=== PATIENT | male | born 1970 | race Two or more races ===

== ENCOUNTER 2016-08-04 13:11 | Emergency (ER) | payer OTHER ==
--- NOTE | ~2016-08-04 | CR72 ---
[facility] A Service of [facility] / [facility] RADIOLOGY TEXT RESULTS PATIENT: RAMONITA KAPADIA LOCATION: [facility] : 74 UNIT #: [id number] AGE: [address]: Samanta Malagon MD SEX: M ORDER DR: [id number] [facility] [address] [place], [place] [address] [id number] E MR#: [id number] Acc #: [id number] NAME: RAMONITA KAPADIA : 1970 SEX: M STUDY DATE/TIME: 08/04/2016 12:39 UNIT: [facility] ROOM: STUDY DESCRIPTION: CR Chest Single View Portable Attending Physician: Samanta Malagon M.D. Ordering Physician: Samanta Malagon M.D. Primary Care Physician: Jose Huffman M.D. MEDICAL IMAGING REPORT This report is preliminary unless electronic signature is present EXAM Portable chest HISTORY Shortness of air for 1 day. COMPARISON STUDIES 03/13/2015. FINDINGS AP portable view of the chest is obtained. The heart size and vascularity are normal and the lungs are clear. Bones are normal. IMPRESSION No active disease. Dictated by... Vinod Olivia M.D. THIS IS AN ELECTRONICALLY VERIFIED REPORT Vinod Olivia M.D. at 08/04/2016 4:55 PM FEL/pcl TD: 08/04/2016 15:33 JOB #: [id number] MEDICAL IMAGING REPORT COPY
--- NOTE | ~2016-08-04 | EKG ---
PATIENT: RAMONITA KAPADIA UNIT #: [id number] Ventricular Rate: 99 BPM Atrial Rate: 99 BPM P-R Interval: 166 ms QRS Duration: 110 ms Q-T Interval: 334 ms QTC Calculation(Bezet): 428 ms P [place]: 58 degrees Calculated R [place]: 52 degrees Calculated T [place]: 49 degrees Diagnosis Line: Normal sinus rhythm Diagnosis Line: Normal ECG Diagnosis Line: Diagnosis Line: Confirmed by ELISSA MINOR MD ([id number]) on Diagnosis Line: 08/04/2016 4:16:11 PM INTERPRETING MD: IVÁN PRAKASH
[2016-08-04 12:18] LABS: INFLUENZA A NEG (NEG); INFLUENZA B NEG (NEG)
[~2016-08-04 13:11] MED LIST: BENTYL10 M1 PO; BENTYL20 M1 PO; CIPRO PO; COLACE PO; ENTOCORT EC3 MG PO; FLEXERIL10 MG PO; FLOMAX0.4 M1 DOB; HYDROCODON-ACE1 EAC9 PO; LOMOTIL WHITE2.5 M1 PO; MILK OF MAGNESIA PO; PERCOCET 7.5/321 TAB PO; PREDNISONE PO; PROTONIX20 MG PO; REMICADE; TOPAMAX PO; TRAMADOL HCL100 MG PO; ULTRAM PO; ZOFRAN PO; [UNRECOGNIZED DRUG - OTHER]; [UNRECOGNIZED DRUG - REMARK]
[2016-08-04 13:18] LABS: BASOPHIL# 0.1 X10e3 (0-0.3); BASOPHIL% 0.5 % (0-2.5); EOSINOPHIL# 0.6 X10e3 (0-0.7); EOSINOPHIL% 5.5 % (0.0-7.0); HEMATOCRIT 42.2 % (38.0-50.0); HEMOGLOBIN 13.7 gm/dL (13.0-16.0); LYMPHOCYTE# 1.9 X10e3 (1.0-3.5); LYMPHOCYTE% 18.6 % (17.0-45.0); MEAN CELL VOLUME 75.6 FL (83-96); MEAN CORPUSCULAR HEMOGLOBIN 24.5 PG (28-34); MEAN CORPUSCULAR HGB CONC 32.4 g/dL (30-36); MEAN PLATELET VOLUME 8.6 FL (6.5-11.5); MONOCYTE# 0.6 X10e3 (0-1.0); NEUTROPHIL% 69.4 % (40-75); PLATELET COUNT 289 X10e3 (140-420); RED BLOOD COUNT 5.58 X10e (3.90-5.60); RED CELL DISTRIBUTION WIDTH 15.4 % (11.0-15.5); WHITE BLOOD COUNT 10.1 X10e3 (4.0-10.5)
[2016-08-04 13:22] LABS: DIFF IND NO
[2016-08-04 13:27] LABS: POC - CKMB 2.1 ng/mL (0.0-7.9); POC - TROPONIN <0.05 ng/mL (<=0.05)
[2016-08-04 13:42] LABS: ALBUMIN SERUM 3.8 g/dL (3.5-5.0); ALKALINE PHOSPHATASE 94 U/L (32-92); ALT (SGPT) 37 U/L (10-40); AST (SGOT) 32 U/L (10-42); BILIRUBIN, DIRECT 0.2 mg/dL (0.0-0.2); BILIRUBIN,TOTAL 1.2 mg/dL (0.2-2.0); BLOOD UREA NITROGEN 11 mg/dL (9-23); BUN/CREATININE RATIO 12.22; CALCIUM SERUM 8.9 mg/dL (8.4-10.2); CARBON DIOXIDE 26 mmol/L (22-31); CHLORIDE 102 mmol/L (100-111); CREATININE SERUM 0.9 mg/dL (0.6-1.4); GLOM FILT RATE Estimated ABOVE60 mL/min (>60); GLUCOSE FASTING 100 mg/dL (70-110); POTASSIUM 3.8 mmol/L (3.5-5.1); PROTEIN TOTAL SERUM 7.3 g/dL (6.0-8.3); SODIUM 137 mmol/L (135-145)
[2016-08-04] MEDS ORDERED: LORTAB 5-325 M1 EACH PO (13:54)
[2016-08-04] MEDS ORDERED: IRON325 ( 65 ) PO (13:55)
[2016-08-04] MEDS ORDERED: GABAPENTIN300 MG PO (13:55)
[2016-08-04] MEDS ORDERED: FLEXERIL10 MG PO (13:55)
[2016-08-04] MEDS ORDERED: ROPINIROLE HCL0.5 MG PO (13:56)
[2016-08-04] MEDS ORDERED: SINGULAIR PO (13:56)
[2016-08-04] MEDS ORDERED: PROTONIX PO (13:56)
[2016-08-04] MEDS ORDERED: ZYRTEC10 M1 PO (13:56)
[2016-08-04 14:48] LABS: POC - CKMB 2.6 ng/mL (0.0-7.9); POC - TROPONIN <0.05 ng/mL (<=0.05)
== END 2016-08-04 16:11 | disposition home or self-care (01) ==
LOC: CED 13:11
PROVIDERS: Emergency Medicine
DX: J20.9 Acute bronchitis, unspecified (principal)
CPT/HCPCS: 71010; 80048; 80076; 82553; 83880; 84484; 85025; 85379; 87651; 87804; 93005; 94640; 96365; 96375; 99284; J1885; J2930; J3475

== ENCOUNTER 2016-10-29 13:41 | Emergency (ER) | payer OTHER ==
--- NOTE | ~2016-10-29 | EKG ---
PATIENT: RAMONITA KAPADIA UNIT #: [id number] Ventricular Rate: 113 BPM Atrial Rate: 113 BPM P-R Interval: 156 ms QRS Duration: 108 ms Q-T Interval: 330 ms QTC Calculation(Bezet): 452 ms P [place]: 43 degrees Calculated R [place]: 40 degrees Calculated T [place]: 30 degrees Diagnosis Line: Sinus tachycardia Diagnosis Line: Otherwise normal ECG Diagnosis Line: When compared with ECG of 04-AUG-2016 12:35, Diagnosis Line: No significant change was found Diagnosis Line: Confirmed by JOSUÉ ERVIN MD ([id number]) on Diagnosis Line: 10/31/2016 1:08:22 PM INTERPRETING : JENNIFER
[~2016-10-29 13:41] MED LIST changes: +GABAPENTIN300 MG PO; +IRON325 ( 65 ) PO; +LORTAB 5-325 M1 EACH PO; +PROTONIX PO; +ROPINIROLE HCL0.5 MG PO; +SINGULAIR PO; +ZYRTEC10 M1 PO
[2016-10-29 14:50] LABS: BASOPHIL# 0.1 X10e3 (0-0.3); BASOPHIL% 0.8 % (0-2.5); DIFF IND NO; EOSINOPHIL# 0.6 X10e3 (0-0.7); EOSINOPHIL% 7.8 % (0.0-7.0); HEMATOCRIT 45.4 % (38.0-50.0); HEMOGLOBIN 14.4 gm/dL (13.0-16.0); LYMPHOCYTE# 2.1 X10e3 (1.0-3.5); LYMPHOCYTE% 30.5 % (17.0-45.0); MEAN CORPUSCULAR HEMOGLOBIN 24.5 PG (28-34); MEAN CORPUSCULAR HGB CONC 31.8 g/dL (30-36); MEAN PLATELET VOLUME 8.6 FL (6.5-11.5); MONOCYTE# 0.4 X10e3 (0-1.0); MONOCYTE% 5.5 % (3.0-12.0); NEUTROPHIL# 3.9 X10e3 (1.5-7.1); NEUTROPHIL% 55.4 % (40-75); PLATELET COUNT 301 X10e3 (140-420); RED CELL DISTRIBUTION WIDTH 15.3 % (11.0-15.5)
[2016-10-29 15:15] LABS: CALCIUM SERUM 9.1 mg/dL (8.4-10.2); GLOM FILT RATE Estimated 91.8 mL/min (>60); POTASSIUM 4.2 mmol/L (3.5-5.1)
== END 2016-10-29 15:45 | disposition home or self-care (01) ==
LOC: CED 13:41
PROVIDERS: Emergency Medicine
DX: R42 Dizziness and giddiness (principal); I10 Essential (primary) hypertension; Z88.5 Allergy status to narcotic agent
CPT/HCPCS: 36415; 80048; 85025; 93005; 96360; 99284

== ENCOUNTER 2016-11-15 23:30 | Emergency (ER) | payer OTHER | END 2016-11-16 01:57 | disposition home or self-care (01) | LOC: CED 23:30 | DX: S33.5XXA Sprain of ligaments of lumbar spine, initial encounter (principal); I10 Essential (primary) hypertension; F17.200 Nicotine dependence, unspecified, uncomplicated; V43.52XA Car driver injured in collision with other type car in traffic accident, initial encounter | CPT/HCPCS: 99283 ==

== ENCOUNTER 2016-12-06 22:40 | Emergency (ER) | payer OTHER | END 2016-12-07 01:30 | disposition home or self-care (01) | LOC: CED 22:40 | DX: G89.29 Other chronic pain (principal); M25.561 Pain in right knee; Z88.5 Allergy status to narcotic agent; Z79.899 Other long term (current) drug therapy | CPT/HCPCS: 99283 ==

== ENCOUNTER 2017-02-15 20:48 | Emergency (ER) | payer OTHER ==
[2017-02-15 22:12] LABS: BASOPHIL# 0.1 X10e3 (0-0.3); BASOPHIL% 1.1 % (0-2.5); EOSINOPHIL# 0.4 X10e3 (0-0.7); HEMATOCRIT 41.2 % (38.0-50.0); HEMOGLOBIN 13.3 gm/dL (13.0-16.0); LYMPHOCYTE# 2.4 X10e3 (1.0-3.5); LYMPHOCYTE% 27.1 % (17.0-45.0); MEAN CELL VOLUME 77.1 FL (83-96); MEAN CORPUSCULAR HEMOGLOBIN 24.8 PG (28-34); MEAN CORPUSCULAR HGB CONC 32.2 g/dL (30-36); MEAN PLATELET VOLUME 8.7 FL (6.5-11.5); MONOCYTE# 0.7 X10e3 (0-1.0); MONOCYTE% 7.6 % (3.0-12.0); NEUTROPHIL# 5.4 X10e3 (1.5-7.1); NEUTROPHIL% 60.2 % (40-75); PLATELET COUNT 271 X10e3 (140-420); RED BLOOD COUNT 5.35 X10e (3.90-5.60); RED CELL DISTRIBUTION WIDTH 14.7 % (11.0-15.5)
[2017-02-15 22:18] LABS: DIFF IND NO
[2017-02-15 22:35] LABS: ALBUMIN SERUM 3.8 g/dL (3.5-5.0); BILIRUBIN, DIRECT 0.2 mg/dL (0.0-0.2); BILIRUBIN,INDIRECT 0.8 mg/dL (0.0-0.9); BUN/CREATININE RATIO 17.77; CALCIUM SERUM 8.9 mg/dL (8.4-10.2); CREATININE SERUM 0.9 mg/dL (0.6-1.4); GLOM FILT RATE Estimated 103.5 mL/min (>60); POTASSIUM 3.6 mmol/L (3.5-5.1); PROTEIN TOTAL SERUM 7.1 g/dL (6.0-8.3)
== END 2017-02-16 00:32 | disposition home or self-care (01) ==
LOC: CED 20:48
PROVIDERS: Emergency Medicine
DX: K50.10 Crohn's disease of large intestine without complications (principal); F17.200 Nicotine dependence, unspecified, uncomplicated; Z90.49 Acquired absence of other specified parts of digestive tract; Z98.890 Other specified postprocedural states; Z88.5 Allergy status to narcotic agent
CPT/HCPCS: 36415; 80048; 80076; 82150; 83690; 85025; 96361; 96374; 96375; 99284; J1170; J2405